=== PATIENT | female | born 1970 | race Caucasian/White ===

== ENCOUNTER 2024-03-06 13:02 | Outpatient (POV) | payer MEDICAID, SELFPAY ==
--- NOTE | 2024-03-06 13:08 | A.OFFVIS_ITS ---
HPI Data of Consult Patient: new to practice Consult date: 03/06/24 Requesting Physician: Catrina Strickland APRN Primary Care Provider: Catrina Lr APRN Consult Narrative Reason for consult: Facial pain, neck pain History of present illness: Ms. Muñoz is a 54 year old female who presents today as a new patient. She is a referral from Catrina Douglass office. Today she rates her pain a 10 out of 10. Patient states that a few years ago she ended up getting COVID and then ended up with very unusual symptoms. Patient states that she started to experience facial pain all around her cheeks and jaw and mouth that does radiate down to her upper chest. She describes it as a constant burning, ripping sensation. She states that she will have flareups with certain illnesses like cold. Patient states that she will run like a fever for 9 days striate and just feels like her immune system is very low. Patient was living in [place] when this occurred and was seen a COVID specialist who had been recommending some herbal remedies such as turmeric. Patient states she ended up having a reaction to that medication in between it and her daughter talking her into moving back to [place] to be close she has not had any additional interventions. Patient does state that she also has a history of fibromyalgia. She does state that they are doing everything they can to check with multiple specialist to see if anybody can be helpful with this. Patient states that it is affecting her sleeping and that it is all her regular activities of living such as cooking and cleaning are affected. Patient is present with her daughter and her daughter does even think there may be portions of POTS involved. Patient denies any heart or kidney issues. She does state that she is on Cymbalta for her fibromyalgia and this does help that pain.Patient is not on any scheduled medications. Her Valentin has been reviewed and is appropriate. CC: Catrina Strickland APRN [facility] Disclaimer: The information contained in this section may have been updated after the patient was seen, as this information can be updated by other users. Medical History (Updated 03/06/24 @ 14:13 by Catrina Strickland APRN) Long COVID HTN (hypertension) Tremor Depression HLD (hyperlipidemia) Surgical History (Updated 03/06/24 @ 13:45 by Sally Zapata RN) Hx of tubal ligation Previous section Family History (Updated 03/06/24 @ 13:44 by Sally Zapata RN) Other Unknown family medical history Social History (Updated 03/06/24 @ 13:46 by Sally Zapata, RN) Smoking Status: Current every day smoker alcohol intake: never current occupational status: unemployed Travel in the last 8 weeks: None Review of Systems Review of Systems Review of systems:: pertinent systems reviewed and negative unless documented below Review of systems (narrative): Review of Systems: General: No recent weight changes, no fever, no sleep disturbances Respiratory: No cough, no shortness of air, no recurring pulmonary infections Cardiovascular/peripheral vascular: No chest pain, no palpitations, no edema, no shortness of breath Gastrointestinal: No new onset incontinence, normal bowel movements reported Genitourinary: No new onset incontinence Musculoskeletal: Facial pain, neck pain Psychiatric: [Normal mood/affect] Neurological: [Denies weakness in extremities], [denies balance issues] Meds Home Medications and Allergies Home Medications ?Medication ?Instructions ?Recorded ?Confirmed ?Type clonazepam 1 mg tablet 1 mg PO DAILY SLEEP 03/06/24 03/06/24 History dextroamphetamine-amphetamine 30 30 mg PO BID 03/06/24 03/06/24 History mg tablet duloxetine 30 mg capsule,delayed 30 mg PO DAILY MOOD 03/06/24 03/06/24 History release fluticasone propionate 50 1 spray intranasal DIRECTED 03/06/24 03/06/24 History mcg/actuation nasal ALLERGIES spray,suspension loratadine 10 mg tablet 10 mg PO DAILY ALLERGIES 03/06/24 03/06/24 History New Prescriptions to Start Prescriptions: Allergies Allergy/AdvReac Type Severity Reaction Status Date / Time Sulfa (Sulfonamide Allergy Other Verified 03/06/24 13:51 Antibiotics) Objective Narrative: Physical Exam: General: Alert and oriented x3, no acute distress, pleasant and cooperative Lungs: Respirations even and unlabored, symmetrical chest expansion Eyes: PERRL Musculoskeletal: Flexion and extension of cervical [spine] somewhat guarded secondary to pain, [antalgic gait noted] Neurological: Speech clear, no gross sensory deficit Assessment and Plan *Assessment and plan (1) Facial pain, atypical: Status: Acute Category: Medical Code(s): G50.1 - Atypical facial pain (2) Chest pain of uncertain etiology: Status: Acute Category: Medical Code(s): R07.9 - Chest pain, unspecified Plan I did discuss with the patient due to the nature of her symptoms that there is not a specific injection that I would immediately recommend. I have discussed with the patient that I do believe it would be beneficial to do consult ne urology. I will send a referral to Dr. Alfonso here at [facility]. Patient agrees with this plan of care. I will also order the patient a compounded cream and send in a 14-day prescription of pregabalin 25 mg at bedtime to possibly help with the nervelike pain as well as her fibromyalgia. Patient will return to clinic in 2 weeks for reevaluation of symptoms and plan of care. Patient has been instructed to contact the clinic with any concerns before the next appointment. Dr. Fall has reviewed this note and agrees with this plan of care. This note was dictated using voice recognition software and make contain errors or omissions. All injections are used with Lidocaine, Bupivacaine and Depo Medrol. Occasionally urine drug screen is needed to verify patient's compliance with our office pain contract. This is ordered based off specific treatments related to chronic pain with the potential to abuse certain medications.
[2024-03-06 13:35] VITALS: BP 118/66; PULSE 69; RESP 18; O2SAT 96; BMI 21.0
== END 2024-03-06 23:59 | disposition home or self-care (01) ==
PROVIDERS: PCP Nurse Practitioner Family; Visit Provider Nurse Practitioner Family
DX: G50.1 Atypical facial pain (principal); R07.9 Chest pain, unspecified; Z73.89 Other problems related to life management difficulty; F17.210 Nicotine dependence, cigarettes, uncomplicated
CPT/HCPCS: 99202; G0463

== ENCOUNTER 2024-03-27 13:27 | Outpatient (POV) | payer MEDICAID, SELFPAY ==
--- NOTE | 2024-03-27 13:40 | A.OFFVIS_ITS ---
[facility] Disclaimer: The information contained in this section may have been updated after the patient was seen, as this information can be updated by other users. Medical History (Updated 03/06/24 @ 14:13 by Catrina Strickland APRN) Long COVID HTN (hypertension) Tremor Depression HLD (hyperlipidemia) Surgical History (Updated 03/06/24 @ 13:45 by Sally Zapata RN) Hx of tubal ligation Previous section Family History (Updated 03/06/24 @ 13:44 by Sally Zapata RN) Other Unknown family medical history Social History (Updated 03/06/24 @ 13:46 by Sally Zapata RN) Smoking Status: Current every day smoker alcohol intake: never current occupational status: unemployed Travel in the last 8 weeks: None PM Subjective & Objective Subjective Subjective:: Patient is a pleasant 54-year-old female who presents today for follow-up and medication refill. Today she rates her pain a 4 out of 10. She denies any new trauma or injury. Patient is still having COVID related residual symptoms that does affect her face including cheeks, jaw and mouth that did radiate into her upper chest. Patient at our last visit was prescribed pregabalin 25 mg at bedtime, she does state that this has significantly helped her overall symptoms. She states that she feels like it even help some of her restless leg symptoms. She does state that she would like to see about going up a little bit on the dosage. Patient does state that it did help and denies any side effects. She does also state that the referral was sent to Dr. Alfonso's office and she is officially scheduled as a new patient however this is not until June. Her Valentin has been reviewed and is appropriate. Review of Systems: General: No recent weight changes, no fever, no sleep disturbances Respiratory: No cough, no shortness of air, no recurring pulmonary infections Cardiovascular/peripheral vascular: No chest pain, no palpitations, no edema, no shortness of breath Gastrointestinal: No new onset incontinence, normal bowel movements reported Genitourinary: No new onset incontinence Musculoskeletal: Facial pain, upper chest pain Psychiatric: [Normal mood/affect] Neurological: [Denies weakness in extremities], [denies balance issues] Pain at rest (0-10 scale): 4 Objective Objective:: Physical Exam: General: Alert and oriented x3, no acute distress, pleasant and cooperative Lungs: Respirations even and unlabored, symmetrical chest expansion Eyes: PERRL Musculoskeletal: Flexion and extension of cervical [spine] somewhat guarded secondary to pain, [antalgic gait noted] Neurological: Speech clear, no gross sensory deficit Has patient had previous pain injection?: No Conservative treatment options previously tried: Home exercise plan Length of treatment: Longer than 12 weeks Meds Home Medications and Allergies Home Medications ?Medication ?Instructions ?Recorded ?Confirmed ?Type clonazepam 1 mg tablet 1 mg PO DAILY SLEEP 03/06/24 03/27/24 History dextroamphetamine-amphetamine 30 30 mg PO BID 03/06/24 03/27/24 History mg tablet duloxetine 30 mg capsule,delayed 30 mg PO DAILY MOOD 03/06/24 03/27/24 History release fluticasone propionate 50 1 spray intranasal DIRECTED 03/06/24 03/27/24 History mcg/actuation nasal ALLERGIES spray,suspension loratadine 10 mg tablet 10 mg PO DAILY ALLERGIES 03/06/24 03/27/24 History pregabalin 25 mg capsule 25 mg PO HS #14 caps 03/06/24 03/27/24 Rx pregabalin 25 mg capsule 25 mg PO HS #8 caps 03/20/24 03/27/24 Rx New Prescriptions to Start Prescriptions: Allergies Allergy/AdvReac Type Severity Reaction Status Date / Time Sulfa (Sulfonamide Allergy Other Verified 03/06/24 13:51 Antibiotics) Assessment and Plan *Assessment and plan (1) Facial pain, atypical: Status: Acute Category: Medical Code(s): G50.1 - Atypical facial pain (2) Chest pain of uncertain etiology: Status: Acute Category: Medical Code(s): R07.9 - Chest pain, unspecified Plan I will increase her pregabalin to 50 mg at bedtime and provide a 1 month supply of this medication. Patient will return to clinic in 1 month for reevaluation of symptoms and plan of care. Patient has been instructed to contact the clinic with any concerns before the next appointment. Dr. Fall has reviewed this note and agrees with this plan of care. This note was dictated using voice recognition software and make contain errors or omissions. All injections are used with Lidocaine, Bupivacaine and Depo Medrol. Occasionally urine drug screen is needed to verify patient's compliance with our office pain contract. This is ordered based off specific treatments related to chronic pain with the potential to abuse certain medications.
[2024-03-27 13:57] VITALS: BP 143/92; PULSE 98; RESP 16; O2SAT 99; BMI 21.0
== END 2024-03-27 23:59 | disposition home or self-care (01) ==
PROVIDERS: PCP Nurse Practitioner Family; Visit Provider Nurse Practitioner Family
DX: G50.1 Atypical facial pain (principal); R07.9 Chest pain, unspecified
CPT/HCPCS: 99212; G0463

== ENCOUNTER 2024-04-17 06:17 | Outpatient (CLI) | payer MEDICAID, SELFPAY ==
--- NOTE | 2024-04-17 | CA_ITS ---
APPROVED REPORT Exam: Pharmacologic Technologist: Courtney Calhoun Ht: 5 ft 2 in Wt: 120 lbs BSA: 1.54 m2 Stress Test Details Test: Lexiscan Reason for pharmacologic stress test: physical limitation. HR Resting HR: 64 bpm Max Heart Rate (APMHR): 167.193018 bpm Max HR Achieved: 114 bpm Target HR (85% APMHR): 141.791202 bpm % of APMHR: 68.26 Recovery HR: 68 bpm BP Resting BP: 157.0/68.0 mmHg Max BP: 165.0/92.0 mmHg Recovery BP: 165.0/92.0 mmHg ECG Resting ECG: NSR, STT Depression Donte-septal leads Stress ECG Conclusion Symptoms: none. Arrhythmias/Ectopy: none. ST-T Changes: <1.5mm ST Segment changes. Conclusion: Non-diagnostic Lexiscan stress test. Electronically signed by : Roxi Tan MD 04/18/2024 00:15:35
--- NOTE | 2024-04-17 06:24 | NM_ITS ---
APPROVED REPORT Exam: Nuclear Stress Test Indication: chest pain..soa..palpiatations..fatigue Patient Location: Outpatient Stress Tech: Courtney Barboza PR Tech:Sherley Blackwell CHRISTINAJulia RT(R)(N) Ht: 5 ft 2 in Wt: 120 lbs Bra Size: 32b HR: 70 bpm BP: 157/68 mmHg BSA: 1.54 m2 TID: 1.07 BMI: 21.9 History: chest pain..soa..palpiatations..fatigue Procedure: Patient received 0.4 mg of intravenous Lexiscan, resting heart rate 70 bpm, resting blood pressure 157/68 mmHg, with Lexiscan maximum heart rate achieved was 112 bpm which is 85 % of the maximum predicted heart rate and blood pressure was 136/88 mmHg. With Lexiscan, patient denied any complaint of chest pain. Cardiac Stress and Resting SPECT Images: Cardiac Stress and Resting SPECT images were obtained using technetium 99m Myoview 32.8 mCi stress and 10.05 mCi at rest. Resting and stress imaging in supine and prone positions demonstrate no evidence of fixed or reversible perfusion defects. Gated imaging demonstrates normal global and regional LV systolic function. LVEF is calculated at 57%. Conclusion: No evidence of fixed or reversible perfusion defects. Gated imaging demonstrates normal global and regional LV systolic function. LVEF is calculated at 57%. Electronically signed by : Roxi Tan MD 04/18/2024 00:05:20
--- NOTE | 2024-04-17 08:15 | CA_ITS ---
APPROVED REPORT EXAM: Comprehensive 2D, Doppler, and color-flow Echocardiogram Multimedia Author: Alycia Olmedo CRT Ht: 5 ft 2 in Wt: 120lbs BSA: 1.54 BP: 133/82 mmHg Indications: Chest Pain, Shortness of Breath, Palpitations, Hyperlipidemia, Hypertension/HDD, half-way covid, hx cva 2D Dimensions LA Volume 40.00 mL LA Volume Index 25.30 mL/m2 (M/F) 16-34 M-Mode Dimensions RVDd 2.56 cm (0.9-2.6) LA Diam 3.00 cm (1.9-4.0) LVDd 4.31 cm (3.5-5.7) LVDs 2.19 cm (3.5-5.7) IVSd 0.63 cm (0.6-1.1) PWd 0.72 cm (0.6-1.1) EF (Teich) 80.80% FS 49.20% EDV (Teich) 83.50 mL TAPSE 1.00 (<1.7) ESV (Teich) 16.00 mL LV Diastology E Decel Time 193 (160-240 msec) E/A Ratio 1.14 MED A' 15.50 cm/s LAT A' 9.90 cm/s Aortic Valve AO Peak GR. 4.70 mmHg Mitral Valve MV A Velocity 80.0 (40-130 cm/s) E/A Ratio 1.14 Tricuspid Valve TR P. Velocity 160.00 cm/s RAP Estimate 10.00 mmHg RVSP 20.20 mmHg Left Ventricle The left ventricle is normal size. The left ventricular systolic function is normal. The left ventricular ejection fraction is within the normal range. There is normal left ventricular wall thickness. There is normal LV segmental wall motion. The left ventricular diastolic function is normal. LVEF is 60%. Right Ventricle The right ventricle is normal size. The right ventricular systolic function is normal. Atria The left atrium size is normal. The right atrium size is normal. There is no Doppler evidence of interatrial shunt. Aortic Valve Aortic valve opens well. There is no aortic valvular stenosis. No aortic regurgitation is present. Mitral Valve The mitral valve is normal in structure. No evidence of mitral valve stenosis. Trace mitral regurgitation. Tricuspid Valve Tricuspid valve is grossly normal in structure and function. Trace tricuspid regurgitation. There is insufficient TR jet to estimate RVSP. Pulmonic Valve The pulmonary valve is normal in structure. Trace pulmonic regurgitation. Great Vessels The aortic root is normal in size. The ascending aorta is not well-visualized. IVC is normal in size and collapses >50% with inspiration. Pericardium There is no pericardial effusion. Other Information Study Quality: Adequate Conclusion Normal biventricular systolic function. No significant valvular stenosis or regurgitation. Electronically signed by : Roxi Tan MD 04/22/2024 11:50:04
[2024-04-17] MEDS: ISOTOPE MYOVIEW (PER STUDY) 1 DOSE IV (10:34)
[2024-04-17] MEDS: SODIUM CHLORIDE 0.9% 10ML SYR (RAD ONLY) 10 ML IV ×2 (10:34)
[2024-04-17] MEDS: REGADENOSON 0.4MG/5ML SYRINGE 0.4 MG IV (10:34)
== END 2024-04-17 23:59 | disposition home or self-care (01) ==
LOC: RAD 06:19
PROVIDERS: PCP Physician Assistant Surgical; Visit Provider Physician Assistant
DX: R00.2 Palpitations (principal); I10 Essential (primary) hypertension; U09.9 Post COVID-19 condition, unspecified
CPT/HCPCS: 78452; 93017; 93018; 93306; A9502; J2785

== ENCOUNTER 2024-04-18 10:27 | Outpatient (CLI) | payer MEDICAID, SELFPAY ==
--- NOTE | 2024-04-18 10:50 | XR_ITS ---
FINAL REPORT TECHNIQUE: Chest PA & Lateral CLINICAL HISTORY: dyspnea/palpitations COMPARISON: None FINDINGS: 2 views of the chest were performed. The heart size is normal. The mediastinum is within normal limits. There is no acute cardiopulmonary process. There are no pleural effusions. There is no pneumothorax. The bony thorax appears intact. IMPRESSION: No acute cardiopulmonary process. Reviewed, Interpreted and Dictated by Tee Purcell MD Transcribed by America Baltazar Authenticated and [facility]
[2024-04-18 10:53] LABS: Basophils # 0.1 K/mm3 (0-0.2); Basophils % 0.6 % (0.1-2.0); Eosinophils # 0.1 K/mm3 (0.0-0.4); Eosinophils % 0.9 % (0.1-12.0); Hematocrit 37.6 % (37.0-47.0); Hemoglobin 13.1 g/dL (12.2-16.2); Lymphocytes # 3.2 K/mm3 (0.7-4.5); Lymphocytes % 33.9 % (10-50); Mean Corpuscular HGB Conc 34.8 g/dL (31.8-35.4); Mean Corpuscular Hemoglobin 33.4 pg (27.0-31.2); Mean Corpuscular Volume 95.9 fl (81-99); Mean Platelet Volume 11.4 fl (7.4-10.4); Monocytes # 0.6 K/mm3 (0.1-1.0); Monocytes % 6.8 % (1.7-9.3); Neutrophils # 5.4 K/mm3 (1.8-7.8); Neutrophils % 57.6 % (37.0-80.0); Platelet Count 378 K/mm3 (142-424); Red Blood Count 3.92 M/mm3 (4.20-5.40); Red Cell Distribution Width 12.2 % (11.5-17.5); White Blood Count 9.4 K/mm3 (4.8-10.8)
[2024-04-18 11:29] LABS: Alanine Aminotransferase 23 U/L (12-78); Albumin Level 5.6 g/dl (3.5-5.0); Alkaline Phosphatase 73 U/L (38-126); Anion Gap 15.2 mEq/L (5-15); Aspartate Amino Transferase 36 U/L (14-36); Bilirubin,Direct 0.1 mg/dl (0.0-0.4); Bilirubin,Indirect 0.4 mg/dL (0.0-0.9); Bilirubin,Total 0.5 mg/dl (0.2-1.3); Bilirubin,Unconjugated 0.3 mg/dL (0.0-1.1); Blood Urea Nitrogen 9 mg/dl (7-17); Calcium 10.3 mg/dl (8.4-10.2); Carbon Dioxide 26 mmol/L (22.0-30.0); Chloride 104 mmol/L (98-107); Chol/HDL Ratio 2.4 (1-3.5); Cholesterol 227 mg/dl (140-200); Estimated Glomerular Filt Rate 105 ml/min (>60); GFR (African American) 127 ML/MIN (>60); Glucose 103 mg/dl (74-100); HDL Cholesterol 95 mg/dl (40-60); Magnesium 1.9 mg/dl (1.6-2.3); Potassium 4.2 mmoL/L (3.5-5.1); Sodium 141 mmol/L (136-145); Total Protein,Serum 7.5 g/dl (6.3-8.2); Triglycerides 177 mg/dl (30-150); VLDL Cholesterol 35 mg/dL (0-40)
[2024-04-18 11:40] LABS: Direct LDL Cholesterol 115.46 mg/dL (100-129)
[2024-04-18 11:48] LABS: Free T4 (Free Thyroxine) 1.03 ng/dl (0.78-2.19)
[2024-04-18 12:01] LABS: Thyroid Stimulating Hormone 1.33 uIU/mL (0.465-4.68)
[2024-04-19 17:08] LABS: Antinuclear Antibodies (ANA) Negative (Negative)
== END 2024-04-18 23:59 | disposition home or self-care (01) ==
LOC: RAD 10:29
PROVIDERS: PCP Nurse Practitioner Family; Visit Provider Physician Assistant
DX: R00.2 Palpitations (principal); I10 Essential (primary) hypertension; U09.9 Post COVID-19 condition, unspecified; E78.5 Hyperlipidemia, unspecified; Z86.73 Personal history of transient ischemic attack (TIA), and cerebral infarction without residual deficits
CPT/HCPCS: 36415; 71046; 80048; 80061; 80076; 83735; 84439; 84443; 85025; 86038; 93225; 93227

== ENCOUNTER 2024-04-25 13:22 | Outpatient (POV) | payer MEDICAID, SELFPAY ==
[2024-04-25 13:35] VITALS: BP 152/93; PULSE 93; RESP 14; O2SAT 97
--- NOTE | 2024-04-25 13:44 | EXP.PAIN.SOA ---
[facility] Disclaimer: The information contained in this section may have been updated after the patient was seen, as this information can be updated by other users. Medical History Long COVID HTN (hypertension) Tremor Depression HLD (hyperlipidemia) Surgical History Hx of tubal ligation Previous section Family History Other Unknown family medical history Social History Smoking Status: Current every day smoker alcohol intake: never current occupational status: other Travel in the last 8 weeks: None PM Subjective & Objective Subjective Subjective:: Patient is a pleasant 54-year-old female who presents today for medication refill and follow-up. Today she rates her pain a 7 out of 10. Patient denies any new trauma or injury. She does state that from the last increase of the pregabalin to 50 mg at bedtime she did feel like it was helpful. She does still state that she has the chronic neck and head pain and feels like that it does move further into and around her scientologist area. Patient is scheduled for a appointment with Dr. Alfonso's office in June. Patient does state during the day she feels like there is times when she lives due to the worsening pain. Her Valentin has been reviewed and is appropriate. Review of Systems: General: No recent weight changes, no fever, no sleep disturbances Respiratory: No cough, no shortness of air, no recurring pulmonary infections Cardiovascular/peripheral vascular: No chest pain, no palpitations, no edema, no shortness of breath Gastrointestinal: No new onset incontinence, normal bowel movements reported Genitourinary: No new onset incontinence Musculoskeletal: Head and neck pain Psychiatric: [Normal mood/affect] Neurological: [Denies weakness in extremities], [denies balance issues] Pain at rest (0-10 scale): 7 Objective Objective:: Physical Exam: General: Alert and oriented x3, no acute distress, pleasant and cooperative Lungs: Respirations even and unlabored, symmetrical chest expansion Eyes: PERRL Musculoskeletal: Flexion and extension of cervical [spine] somewhat guarded secondary to pain, [antalgic gait noted] Neurological: Speech clear, no gross sensory deficit Has patient had previous pain injection?: No Conservative treatment options previously tried: Home exercise plan Length of treatment: Longer than 12 Meds Home Medications and Allergies Home Medications ?Medication ?Instructions ?Recorded ?Confirmed ?Type loratadine 10 mg tablet 10 mg PO DAILY ALLERGIES 03/06/24 04/25/24 History pregabalin 50 mg capsule 50 mg PO HS #30 caps 03/27/24 04/25/24 Rx duloxetine 60 mg capsule,delayed 60 mg PO ONCE 04/08/24 04/25/24 History release multivitamin (Multiple Vitamins 1 tab PO DAILY 04/08/24 04/25/24 History tablet) New Prescriptions to Start Prescriptions: Allergies Allergy/AdvReac Type Severity Reaction Status Date / Time Sulfa (Sulfonamide Allergy Other Verified 04/22/24 10:44 Antibiotics) Assessment and Plan *Assessment and plan (1) Facial pain, atypical: Status: Acute Category: Medical Code(s): G50.1 - Atypical facial pain (2) Chest pain of uncertain etiology: Status: Acute Category: Medical Code(s): R07.9 - Chest pain, unspecified Plan I did discuss with the patient that I will increase her pregabalin to 50 mg twice a day and we will send a 1 month supply of this medication. Patient will return to clinic in 1 month for reevaluation of symptoms and plan of care. Patient has been instructed to contact the clinic with any concerns before the next appointment. Dr. Fall has reviewed this note and agrees with this plan of care. This note was dictated using voice recognition software and make contain errors or omissions. All injections are used with Lidocaine, Bupivacaine and Depo Medrol. Occasionally urine drug screen is needed to verify patient's compliance with our office pain contract. This is ordered based off specific treatments related to chronic pain with the potential to abuse certain medications.
== END 2024-04-25 23:59 | disposition home or self-care (01) ==
PROVIDERS: PCP Nurse Practitioner Family; Visit Provider Nurse Practitioner Family
DX: G50.1 Atypical facial pain (principal); R07.9 Chest pain, unspecified; F17.200 Nicotine dependence, unspecified, uncomplicated
CPT/HCPCS: 99212; G0463

== ENCOUNTER 2024-06-03 16:55 | Outpatient (CLI) | payer MEDICAID, SELFPAY ==
--- NOTE | 2024-06-03 16:58 | MM_ITS ---
PROCEDURE INFORMATION: Exam: MG Bilateral Screening 3D Mammography Exam date and time: 06/03/2024 5:01 PM Age: 54 years old Clinical indication: Screening examination TECHNIQUE: Imaging protocol: Bilateral Screening tomosynthesis and 2D mammography including computer-aided detection (CAD) when performed. COMPARISON: No relevant prior studies available. FINDINGS: MAMMOGRAPHY: Breast composition: The breasts are heterogeneously dense, which may obscure small masses. Mass: None. Architectural distortion: None. Calcifications: No suspicious calcifications. Asymmetric density: None. Skin thickening: None. Axillary adenopathy: None. IMPRESSION: No mammographic evidence of malignancy. Annual screening is recommended unless otherwise clinically indicated. ASSESSMENT: BI-RADS Category 1: Negative.
== END 2024-06-03 23:59 | disposition home or self-care (01) ==
LOC: RAD 16:56
PROVIDERS: PCP Nurse Practitioner Family; Visit Provider Nurse Practitioner Family
DX: Z12.31 Encounter for screening mammogram for malignant neoplasm of breast (principal)
CPT/HCPCS: 77063; 77067

== ENCOUNTER 2024-06-04 11:20 | Outpatient (POV) | payer MEDICAID, SELFPAY ==
[2024-06-04 11:29] VITALS: BP 111/71; PULSE 83; RESP 18; O2SAT 99; BMI 21.5
--- NOTE | 2024-06-04 12:00 | EXP.PAIN.SOA ---
[facility] Disclaimer: The information contained in this section may have been updated after the patient was seen, as this information can be updated by other users. Medical History Urinary incontinence Hearing loss Right ear pain Long COVID HTN (hypertension) Tremor Depression HLD (hyperlipidemia) Surgical History Hx of tubal ligation Previous section Family History Other Unknown family medical history Social History Smoking Status: Current every day smoker alcohol intake: never current occupational status: other Travel in the last 8 weeks: None PM Subjective & Objective Subjective Subjective:: Patient is a pleasant 54-year-old female who presents today 1 month follow-up medication refill. Today she rates her pain at 1 out of 10. Patient denies any new trauma or injury. She does state that she feels like this is the best she has been in some time. She feels like she is more like herself. She states that with the pregabalin along with her duloxetine she feels like she is able to do normal activities without the pain constantly being focused on. She states that she is sleeping better. Patient does state that she does officially have a neurologist appointment in June. Patient does also make mention that she has tried a new supplement lumbrokinase that does target blood clotting. Patient is currently managed with pregabalin 50 mg twice a day from our office. She denies any side effects. Her Valentin has been reviewed and is appropriate. Review of Systems: General: No recent weight changes, no fever, no sleep disturbances Respiratory: No cough, no shortness of air, no recurring pulmonary infections Cardiovascular/peripheral vascular: No chest pain, no palpitations, no edema, no shortness of breath Gastrointestinal: No new onset incontinence, normal bowel movements reported Genitourinary: No new onset incontinence Musculoskeletal: Neck pain Psychiatric: [Normal mood/affect] Neurological: [Denies weakness in extremities], [denies balance issues] Pain at rest (0-10 scale): 1 Objective Objective:: Physical Exam: General: Alert and oriented x3, no acute distress, pleasant and cooperative Lungs: Respirations even and unlabored, symmetrical chest expansion Eyes: PERRL Musculoskeletal: Flexion and extension of cervical spine within normal limits Neurological: Speech clear, no gross sensory deficit Has patient had previous pain injection?: No Conservative treatment options previously tried: Prescription medications Length of treatment: Longer than 12-week Meds Home Medications and Allergies Home Medications ?Medication ?Instructions ?Recorded ?Confirmed ?Type loratadine 10 mg tablet 10 mg PO DAILY ALLERGIES 03/06/24 06/04/24 History duloxetine 60 mg capsule,delayed 60 mg PO ONCE 04/08/24 06/04/24 History release multivitamin (Multiple Vitamins 1 tab PO DAILY 04/08/24 06/04/24 History tablet) pregabalin 50 mg capsule 50 mg PO BID #60 caps 04/25/24 06/04/24 Rx clonazepam 1 mg tablet 1 mg PO HS 05/27/24 06/04/24 History dextroamphetamine-amphetamine 30 15 mg PO DAILY 05/27/24 06/04/24 History mg tablet New Prescriptions to Start Prescriptions: Allergies Allergy/AdvReac Type Severity Reaction Status Date / Time Sulfa (Sulfonamide Allergy Other Verified 06/02/24 10:52 Antibiotics) Assessment and Plan *Assessment and plan (1) Long COVID: Status: Acute Category: Medical Code(s): U09.9 - Post COVID-19 condition, unspecified (2) Facial pain, atypical: Status: Acute Category: Medical Code(s): G50.1 - Atypical facial pain (3) Chest pain of uncertain etiology: Status: Acute Category: Medical Code(s): R07.9 - Chest pain, unspecified Plan I will refill the patient's pregabalin and provide a 3-month supply of this medication. Patient will return to clinic in 3 months. Patient has been instructed to contact the clinic with any concerns before the next appointment. Dr. Fall has reviewed this note and agrees with this plan of care. This note was dictated using voice recognition software and make contain errors or omissions. All injections are used with Lidocaine, Bupivacaine and Depo Medrol. Occasionally urine drug screen is needed to verify patient's compliance with our office pain contract. This is ordered based off specific treatments related to chronic pain with the potential to abuse certain medications.
== END 2024-06-04 23:59 | disposition home or self-care (01) ==
PROVIDERS: PCP Nurse Practitioner Family; Visit Provider Nurse Practitioner Family
DX: U09.9 Post COVID-19 condition, unspecified (principal); G50.1 Atypical facial pain; R07.9 Chest pain, unspecified; F17.210 Nicotine dependence, cigarettes, uncomplicated
CPT/HCPCS: 99212; G0463

== ENCOUNTER 2024-06-24 08:54 | Outpatient (CLI) | payer MEDICAID, SELFPAY ==
[2024-06-24] MEDS: SODIUM CHLORIDE 0.9% 10ML SYR (RAD ONLY) 10 ML IV (09:13)
[2024-06-24] MEDS: IOPAMIDOL-370 (76%);100ML BOTTLE 75 ML IV (09:13)
--- NOTE | 2024-06-24 09:15 | CT_ITS ---
FINAL REPORT TECHNIQUE: Axial CT of the abdomen and pelvis, without and with IV contrast. This study was performed with techniques to keep radiation doses as low as reasonably achievable, (ALARA). Individualized dose reduction techniques using automated exposure control or adjustment of mA and/or kV according to the patient's size were employed. CLINICAL HISTORY: Renal stone COMPARISON: None FINDINGS: CT ABDOMEN PELVIS WITH AND WITHOUT CONTRAST: Abdomen: Liver has an unremarkable CT appearance. The pancreas and adrenal glands are unremarkable. There is a small cyst in the anterior spleen. The gallbladder is distended without evidence of stones or biliary ductal dilatation. Precontrast imaging shows multiple left renal stones, the largest in the lower pole measuring 7 mm in diameter. No abnormal calcifications are identified in the right kidney no hydronephrosis is present. No abnormal enhancement is identified. Postcontrast imaging of the kidneys shows no mass or obstruction. Mild fecal impaction is present without evidence of bowel obstruction. Pelvis: The appendix is not visualized. Pelvic bowel loops are unremarkable. No fluid collection or adenopathy is seen. The uterus and ovaries are unremarkable in appearance. IMPRESSION: Multiple left renal stones, nonobstructing, the largest in the lower pole measuring 7 mm in size. The kidneys are otherwise unremarkable. The gallbladder is distended without stones or biliary ductal dilatation. Reviewed, Interpreted and Dictated by Darcie Brown MD Transcribed by America Baltazar Authenticated and . [facility]
== END 2024-06-24 23:59 | disposition home or self-care (01) ==
LOC: RAD 08:55
PROVIDERS: PCP Nurse Practitioner Family; Visit Provider Urology
DX: N20.0 Calculus of kidney (principal)
CPT/HCPCS: 74178; Q9967

== ENCOUNTER 2024-07-14 12:40 | Outpatient (CLI) | payer MEDICAID, SELFPAY ==
[2024-07-14 12:45] LABS: Anti-Centromere B Antibodies ND; Anti-DNA (DS) Ab Qn ND; Anti-Jo-1 ND; Antichromatin Antibodies ND; Antiscleroderma-70 Antibodies ND; Immunoglobulin A, Qn, Serum ND; Immunoglobulin G, Qn, Serum ND; Immunoglobulin M, Qn, Serum ND; RNP Antibodies ND; Sjogren's Anti-SS-A ND; Sjogren's Anti-SS-B ND
[2024-07-14 12:55] LABS: Microscopic, Urine URINE MICROSCOPIC (MICROSCOPIC)
[2024-07-14 13:26] LABS: Appearance,Urine CLEAR (Clear); Bilirubin,Urine Negative (Negative); Blood, Urine Negative (Negative); Color,Urine YELLOW (Yellow); Glucose,Urine (UA) Negative (Negative); Ketones,Urine Negative (Negative); Leukocyte Esterase,Urine TRACE (Negative); Nitrate,Urine Negative (Negative); PH,Urine 6.5 (5.0-8.5); Protein,Urine Negative (Negative); Specific Gravity, Urine 1.015 (1.005-1.030); Urobilinogen,Urine 0.2 EU/dl (0.2)
[2024-07-14 13:54] LABS: Albumin Level 4.7 g/dl (3.5-5.0); Chloride 105 mmol/L (98-107); Sodium 140 mmol/L (136-145)
[2024-07-14 13:55] LABS: Potassium 4.1 mmoL/L (3.5-5.1)
[2024-07-14 13:57] LABS: Alanine Aminotransferase 21 U/L (12-78); Alkaline Phosphatase 58 U/L (38-126); Anion Gap 11.1 mEq/L (5-15); Aspartate Amino Transferase 31 U/L (14-36); Bilirubin,Total 0.2 mg/dl (0.2-1.3); Blood Urea Nitrogen 16 mg/dl (7-17); Carbon Dioxide 28 mmol/L (22.0-30.0); Estimated Glomerular Filt Rate 75 ml/min (>60); GFR (African American) 91 ML/MIN (>60); Globulin 2.4 g/dL (1.3-3.2); Total Protein,Serum 7.1 g/dl (6.3-8.2)
[2024-07-14 13:58] LABS: Calcium 9.5 mg/dl (8.4-10.2); Glucose 115 mg/dl (74-100)
[2024-07-14 14:18] LABS: Bacteria,Urine Trace /lpf
[2024-07-14 14:27] LABS: Erythrocyte Sedimentation Rate 21 mm/hr (0-30)
[2024-07-14 18:09] LABS: Vitamin B12 > 1000 pg/mL (239-931)
[2024-07-15 07:10] LABS: RPR W/RFX Titers Nonreactive (Nonreactive)
[2024-07-15 11:27] LABS: Antinuclear Antibodies (ANA) Negative (Negative)
[2024-07-15 14:12] LABS: Albumin 3.8 g/dL (2.9-4.4); Alpha-1-Globulin 0.3 g/dL (0.0-0.4); Alpha-2-Globulin 0.9 g/dL (0.4-1.0); Angiotensin Converting Enzyme 50 U/L (14-82); Gamma Globulin 0.8 g/dL (0.4-1.8); Protein, Total 6.8 g/dL (6.0-8.5)
[2024-07-17 18:10] LABS: Vitamin B1 141.5 nmol/L (66.5-200.0)
== END 2024-07-14 23:59 | disposition home or self-care (01) ==
LOC: LAB 12:41
PROVIDERS: Urology; PCP Nurse Practitioner Family; Visit Provider Specialist
DX: Z87.39 Personal history of other diseases of the musculoskeletal system and connective tissue (principal); G37.9 Demyelinating disease of central nervous system, unspecified; G62.9 Polyneuropathy, unspecified; N20.0 Calculus of kidney
CPT/HCPCS: 36415; 80053; 81001; 82164; 82607; 84155; 84165; 84425; 85651; 86038; 86334; 86592

== ENCOUNTER 2024-07-18 09:19 | Outpatient (CLI) | payer MEDICAID, SELFPAY ==
--- NOTE | 2024-07-18 09:30 | MR_ITS ---
FINAL REPORT CLINICAL HISTORY: long covid brain fog headaches, dizzy, blurred vision COMPARISON: None FINDINGS: Multiplanar MR imaging of the brain was performed without and with contrast. There is no evidence of intracranial hemorrhage or mass. No abnormal extra-axial fluid collection is seen. The ventricular size is within normal limits. There is no evidence of shift of the midline structures. The posterior fossa and brainstem have an unremarkable appearance. No area of abnormal restricted diffusion is identified. No abnormal contrast enhancement is seen. Normal major vessel vascular flow voids are noted. There is fluid signal present in the left mastoid air cells, consistent with chronic mastoiditis. IMPRESSION: No acute intracranial abnormality identified. Fluid signal in the left mastoid air cells, consistent with chronic mastoiditis. Reviewed, Interpreted and Dictated by Tee Purcell MD Transcribed by America Baltazar Authenticated and [facility]
[2024-07-18] MEDS: SODIUM CHLORIDE 0.9% 10ML SYR (RAD ONLY) 10 ML IV (09:59)
[2024-07-18] MEDS: GADOTERIDOL INJ 10ML SYRINGE 10 ML IV (09:59)
== END 2024-07-18 23:59 | disposition home or self-care (01) ==
LOC: RAD 09:20
PROVIDERS: PCP Nurse Practitioner Family; Visit Provider Specialist
DX: U09.9 Post COVID-19 condition, unspecified (principal); R41.89 Other symptoms and signs involving cognitive functions and awareness; R51.9 Headache, unspecified; R42 Dizziness and giddiness; H53.8 Other visual disturbances; G62.9 Polyneuropathy, unspecified; Z87.39 Personal history of other diseases of the musculoskeletal system and connective tissue
CPT/HCPCS: 70553; A9576

== ENCOUNTER 2024-09-01 10:28 | Outpatient (POV) | payer MEDICAID, SELFPAY ==
--- OUTSIDE RECORDS SUMMARY | 2023-03-23 04:20 | XMS_ITS ---
Author Organization [facility] etienne Address [address] [place] [address] Care Team Providers Care Compressor Engineer Name Role Phone NAYELI GODINEZ Primary Care Provider REASON FOR VISIT [facility] Social History Sex Assigned At : Social History Observation Description Sex Assigned At Female Encounters Encounter Location Date Provider Diagnosis [address] [address] 03/23/2023 NAYELI GODNIEZ Plan Of Treatment No Information Progress Notes * TASNEEM FERRARA RDOB:[birth year] (54 yo F)Acc No.[id number]:03/23/2023 Lab Patient: Fela MULLINS TASNEEM Martin Provider: Tammy GODINEZ APRN :1970 A ge:53 Y S ex:Female Date:03/23/2023 [facility] [id number] Structured Data: : No ; Homeless : No; Housing Status : Own; Which [facility] Pharmacy would you like your prescriptions sent? : None Subjective: * Chief Complaints: * 1 . [facility]. * Medical History: Objective: * Vitals: Assessment: Plan: * Treatment: * * Electronic signature of ALLYSSA GODINEZ APRN, [id number] on 09/01/2024 at 10:38 AM EDT Sign off status: Pending * Provider: Tammy GODINEZ APRN Date: 0 03/23/2023 Generated for Josselin sullivan/Vasu/eTransmitting on: 0 09/01/2024 10:38 AM EDT
--- OUTSIDE RECORDS SUMMARY | 2023-03-27 06:20 | XMS_ITS ---
Author Organization [facility] etienne Address [address] [place] [address] Care Team Providers Care Call Worker Name Role Phone NAYELI GODINEZ Primary Care Provider [phone] REASON FOR VISIT WWE/PAP, Slide F, Mammo ? Social History Sex Assigned At : Social History Observation Description Sex Assigned At Female Encounters Encounter Location Date Provider Diagnosis [address] [address] 03/27/2023 NAYELI GODINEZ Plan Of Treatment No Information Progress Notes * TASNEEM FERRARA RDOB:[birth year] (54 yo F)Acc No.[id number]:03/27/2023 PAP Patient: Fela MULLINSTASNEEM Provider: Tammy GODINEZ APRN :1970 A ge:53 Y S ex:Female Date:03/27/2023 Address:[address] [place], [id number] Structured Data: : No ; Homeless : No; Housing Status : Own; Which [facility] Pharmacy would you like your prescriptions sent? : None Subjective: * Chief Complaints: * 1 . WWE/PAP. 2. Slide F. 3. Mammo ?. * Medical History: Objective: * Vitals: Assessment: Plan: * Treatment: * * Electronic signature of ALLYSSA GODINEZ APRN, [id number] on 09/01/2024 at 10:39 AM EDT Sign off status: Pending * Provider: Tammy GODINEZ APRN Date: 0 03/27/2023 Generated for Josselin sullivan/Vasu/Faisal on: 0 09/01/2024 10:39 AM EDT
--- OUTSIDE RECORDS SUMMARY | 2023-04-04 04:40 | XMS_ITS ---
Author Organization [facility] etienne Address [address] [place] [address] Care Team Providers Care Metal Furnace Operator Name Role Phone NAYELI GODINEZ Primary Care Provider [phone] REASON FOR VISIT F/U PAP/LAB REVIEW Social History Sex Assigned At : Social History Observation Description Sex Assigned At Female Encounters Encounter Location Date Provider Diagnosis Televisit [address] [address] 04/04/2023 NAYELI GODINEZ Plan Of Treatment No Information Progress Notes * TASNEEM FERRARA RDOB:[birth year] (54 yo F)Acc No.[id number]:04/04/2023 Televisit Patient: Fela MULLINS TASNEEM Martin Provider: Tammy GODINEZ APRN :1970 A ge:53 Y S ex:Female Date:04/04/2023 Address:[address] [place], [id number] Structured Data:[place] : No ; Homeless : No; Housing Status : Own; Which [facility] Pharmacy would you like your prescriptions sent? : None Subjective: * Chief Complaints: * 1 . F/U PAP/LAB REVIEW. * Medical History: Objective: * Vitals: Assessment: Plan: * Treatment: Care Plan: * Problems: * Care Plan Details* * Electronic signature of ALLYSSA GODINEZ APRN, [id number] on 09/01/2024 at 10:39 AM EDT Sign off status: Pending * Provider: Tammy GODINEZ APRN Date: 0 04/04/2023 Generated for Josselin sullivan/Vasu/Faisal on: 0 09/01/2024 10:39 AM EDT
--- OUTSIDE RECORDS SUMMARY | 2024-09-01 10:39 | XMS_ITS | Patient Health Record ---
Author Organization [facility] Address [address] [address] Care Team Providers Care Quality Assurance Analyst Name Role Phone CARMEN GALEANA Primary Care Provider Reason For Referral No Information Plan Of Treatment No Information
--- OUTSIDE RECORDS SUMMARY | 2024-09-01 10:39 | XMS_ITS | Patient Health Record ---
Author Organization [facility] etienne Address [address] [place] [address] [address] [place] [address] Care Team Providers Care Operational Risk Manager Name Role Phone NAYELI GODINEZ Primary Care Provider Allergies Allergen (clinical drug ingredient) Drug/Non Drug Allergy documented on EMR Reaction Allergy Type Onset Date Status Sulfur Unknown Drug Allergy Active Reason For Referral No Information Medications Medication SIG (Take, Route, Frequency, Duration) Notes Start Date End Date Status valACYclovir HCl 1 GM 1 tablet Orally Tw ice a day for 7 days Not-Taking Opfukdxq-Xbpkquwzr-SY [id number] 4 drops into affected ear Otic Three times a day for 10 days Not-Taking Adderall 20 MG 1 tablet Orally once daily Not-Taking KlonoPIN 1 MG 1 tablet Orally Once a day Not-Taking Meclizine HCl 12.5 MG 1 tablet as needed , preferably at night Orally Once a day for 30 day(s) 02/22/2021 Not-Taking Aleve Not-Taking Culturelle - Take one cap Orally once daily for 30 days Not-Takin g Acidophilus 100 MG Take one cap Orally once daily for 20 days Not-Takin g Doxycycline Hyclate 100 MG 1 tablet Orally Twice a day for 10 day(s) 03/01/2021 Not-Taking Clotrimazole 1 % A few drops in left ear Otic Four times a day for 28 day(s) 02/22/2021 Not-Taking Benadryl Allergy Not -Taking Immunizations Vaccine Route Administration Date Status Comme nts Influenza Unknown 02/20/2023 Refused Social History Tobacco Use: Social History Observation Description Date Details (start date - stop date) Current Smoker NA - NA Sex Assigned At : Social History Observation Description Sex Assigned At Female Tobacco Use/Smoking Question Answer Notes Are you a current smoker How many cigarettes a day do you smoke? 6-10 How soon after you wake up d o you smoke your first cigarette? 6-30 minutes Are you interested in quitting? Ready to quit Additional Findings: Tobacco User Light cigarett e smoker ((1-9 cigs/day) Alcohol Screen (Audit-C) Question Answer Notes Did you have a drink contain ing alcohol in the past year? Yes How often did you have a dri nk containing alcohol in the past year? 4 or more times a week (4 points) Points 4 Interpretation Positive Sexual History Question Answer Notes Had sex in the past 12 months (vaginal, oral, or anal)? Yes with Men only Problems Problem Type SNOMED Code ICD Code Onset Dates Problem Status W/U Status Risk Notes Problem Headache associated with sexual activity (572261442) Headache associated with sexual activity (G44.82) Active confirmed Problem 9689854 Otitis externa i n other diseases classified elsewhere, bilateral (H62.43) Active confirmed Problem Tobacco dependence (46577429) Tobacco dependence (F17.200) Active confirmed Problem 689971082 BMI 21.0-21.9, adult (Z68.21) Active confirmed Problem 04790060 Sinusitis, unspecified chronicity, unspecified location (J32.9) Active confirmed Problem 971237811 Screening for depression (Z13.31) Active confirmed Problem Flank pain (591161657) Flank pain (R10.9) Active confirmed Problem Pain in female genitalia on intercourse (70311262) Dyspareunia in female (N94.10) Active confirmed Problem 947056773 Scar (L90.5) Active confirmed Problem Human immunodeficiency virus (HIV) screening (349284245) Encounter for HIV (human immunodeficiency virus) test (Z11.4) Active confirmed Problem 233541524 Encounter to establish care with new doctor (Z76.89) Active confirmed Problem 834798209 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) Active confirmed Problem History and physical examination, follow-up (912645186) Encounter for examination following treatment at hospital (Z09) Active confirmed Problem Moderately severe depression (606569153) Moderately severe depression (F32.2) Active confirmed Plan Of Treatment Pending Test Test Name Order Date Lipid Panel 02/20/2023 CMP - Comprehensive Metabolic Panel + eG FR 02/20/2023 CBC no diff (H/H, RBC, INDICES, WBC, PLT ) 02/20/2023 ESR - SED RATE BY MODIFIED WESTERGREN C-REACTIVE PROTEIN 02/20/2023 TSH 02/20/2023 HEMOGLOBIN A1c 02/20/2023 ANALYZER(TM)PARDEEP, IFA WITH RE FLEX TITER/PATTERN, SYSTEMIC AUTOIMMUNE PANEL 1 02/20/2023 Insurance Providers Payer Name Payer Address Payer Phone Subscriber Number Group Number Insured Name Patient Relationship to Insured Coverage Start Date Coverage End Date [facility] [address] [address] [place] [address] [id number] TASNEEM FERRARA Self - patient is the insured [id number] [address] [id number] TASNEEM FERRARA Self - patient is the insured Medical (General) History Medical History History ICD Code ADHD Surgical History Surgery Date(Month/Year) c section 2001 several ear surgeries as a child kidney stone 2020 Tubal 2001 Hospitalization History Reason Date(Month/Year) Flank pain 11/2020 allergic reaction from vaccine 04/2020
--- NOTE | 2024-09-01 10:53 | EXP.PAIN.SOA ---
[facility] Disclaimer: The information contained in this section may have been updated after the patient was seen, as this information can be updated by other users. Medical History Thyroid disease Fibromyalgia Arthritis Anemia Migraine Anxiety Dyspnea on exertion Urinary incontinence Hearing loss Right ear pain Long COVID HTN (hypertension) Tremor Depression HLD (hyperlipidemia) Surgical History (Updated 07/21/24 @ 15:25 by Ro Catalan APRN) History of bilateral tympanoplasty Hx of tubal ligation Previous section Family History Other Unknown family medical history Social History (Updated 07/21/24 @ 15:26 by Ro Catalan APRN) Smoking Status: Former smoker alcohol intake: never current occupational status: unemployed Travel in the last 8 weeks?: None PM Subjective & Objective Subjective Subjective:: Patient is a pleasant 54-year-old female who presents today for medication refill and 3-month follow-up. Today she rates her pain a 1 out of 10. Patient is still doing really well with the pregabalin 50 mg twice a day from our office. Patient is prescribed duloxetine as well. She denies any side effects. Patient does feel like overall she has done really well with this regimen and that she is about 85% improved from when she originally came [place]. She states certain days do seem a little bit worse than others but it is much more manageable. Her Valentin has been reviewed and is appropriate. Review of Systems: General: No recent weight changes, no fever, no sleep disturbances Respiratory: No cough, no shortness of air, no recurring pulmonary infections Cardiovascular/peripheral vascular: No chest pain, no palpitations, no edema, no shortness of breath Gastrointestinal: No new onset incontinence, normal bowel movements reported Genitourinary: No new onset incontinence Musculoskeletal: Neck pain Psychiatric: [Normal mood/affect] Neurological: [Denies weakness in extremities], [denies balance issues] Pain at rest (0-10 scale): 1 Objective Objective:: Physical Exam: General: Alert and oriented x3, no acute distress, pleasant and cooperative Lungs: Respirations even and unlabored, symmetrical chest expansion Eyes: PERRL Musculoskeletal: Flexion and extension of [cervical spine within normal limits Neurological: Speech clear, no gross sensory deficit Has patient had previous pain injection?: No Conservative treatment options previously tried: Prescription medications Length of treatment: Longer than 12 weeks Meds Home Medications and Allergies Home Medications ?Medication ?Instructions ?Recorded ?Confirmed ?Type loratadine 10 mg tablet 10 mg PO DAILY ALLERGIES 03/06/24 07/21/24 History duloxetine 60 mg capsule,delayed 60 mg PO ONCE 04/08/24 07/21/24 History release multivitamin (Multiple Vitamins 1 tab PO DAILY 04/08/24 07/21/24 History tablet) clonazepam 1 mg tablet 1 mg PO HS 05/27/24 07/21/24 History dextroamphetamine-amphetamine 30 15 mg PO DAILY 05/27/24 07/21/24 History mg tablet pregabalin 50 mg capsule 50 mg PO BID #60 caps 06/04/24 07/21/24 Rx albuterol sulfate 90 mcg/actuation 2 puff inhalation Q6H PRN Asthma 06/09/24 07/21/24 History aerosol inhaler sodium,potassium,mag sulfates 17.5 See Rx Instructions PO .COMPLEX 07/07/24 07/21/24 Rx gram-3.13 gram-1.6 gram oral soln #354 mL (Suprep Bowel Prep Kit) New Prescriptions to Start Prescriptions: Allergies Allergy/AdvReac Type Severity Reaction Status Date / Time Sulfa (Sulfonamide Allergy Other Verified 07/21/24 15:26 Antibiotics) Assessment and Plan *Assessment and plan (1) Atypical chest pain: Problem Comment: Brisk reflexes throughout Status: Suspected Category: Medical Code(s): R07.89 - Other chest pain (2) Facial pain, atypical: Status: Acute Category: Medical Code(s): G50.1 - Atypical facial pain Plan I will refill the patient's pregabalin and provide a 3-month supply of this medication. Patient will return to clinic in 3 months for reevaluation of symptoms and plan of care. Patient has been instructed to contact the clinic with any concerns before the next appointment. Dr. Fall has reviewed this note and agrees with this plan of care. This note was dictated using voice recognition software and make contain errors or omissions. All injections are used with Lidocaine, Bupivacaine and dexamethasone. Occasionally urine drug screen is needed to verify patient's compliance with our office pain contract. This is ordered based off specific treatments related to chronic pain with the potential to abuse certain medications.
[2024-09-01 12:30] VITALS: BP 124/84; PULSE 77; RESP 18; O2SAT 97; BMI 23.6
== END 2024-09-01 23:59 | disposition home or self-care (01) ==
PROVIDERS: PCP Nurse Practitioner Family; Visit Provider Nurse Practitioner Family
DX: R07.89 Other chest pain (principal); G50.1 Atypical facial pain; Z79.899 Other long term (current) drug therapy
CPT/HCPCS: 99212; G0463